=== PATIENT | male | born 1965 | race Caucasian/White ===

== ENCOUNTER 2018-04-17 21:35 | Emergency (ER) | payer OTHER ==
[2018-04-17] MEDS: HYDROmorphONE 0.5 MG/0.5 ML SYG IV (22:07)
[2018-04-17 22:08] LABS: WHITE BLOOD COUNT 15.4 10^3/ul (4.8-10.8)
[2018-04-17 22:08] LABS: ADD MAN DIFF? NO; BASOPHIL # 0.1 10^3/ul (0.0-0.1); BASOPHILS % 0.7 % (0.0-2.0); EOSINOPHILS # 0.7 10^3/ul (0.0-0.5); EOSINOPHILS % 4.4 % (0.0-7.0); HEMATOCRIT 41.9 % (42.0-52.0); HEMOGLOBIN 13.6 g/dl (14.0-18.0); LYMPHOCYTES # 2.3 10^3/ul (0.8-2.9); LYMPHOCYTES % 14.8 % (15.0-51.0); MEAN CORPUSCULAR HEMOGLOBIN 28.8 pg (29.0-33.0); MEAN CORPUSCULAR HGB CONC 32.5 g/dl (32.0-37.0); MEAN CORPUSCULAR VOLUME 88.6 fl (82.0-101.0); MEAN PLATELET VOLUME 8.9 fl (7.4-10.4); MONOCYTE # 0.9 10^3/ul (0.3-0.9); MONOCYTES % 5.7 % (0.0-11.0); NEUTROPHILS % 71.3 % (39.0-77.0); PLATELET COUNT 455 10^3/UL (140-415); RED BLOOD COUNT 4.73 10^6/ul (4.70-6.10); RED CELL DISTRIBUTION WIDTH 13.9 % (11.5-14.5)
[2018-04-17 22:29] LABS: INR 0.85; PROTIME 11.7 Sec (11.9-14.9); PT RATIO 0.9
[2018-04-17 22:30] LABS: PARTIAL THROMBOPLASTIN TIME 32.4 Sec (23.0-35.0)
[2018-04-17 22:43] LABS: ANION GAP 11 (5-13); BLOOD UREA NITROGEN 12 mg/dl (7-20); CALCIUM 9.5 mg/dl (8.4-10.2); CARBON DIOXIDE 26 mmol/L (21-31); CHLORIDE 103 mmol/L (97-110); CREATININE 1.09 mg/dl (0.61-1.24); Estimated GFR > 60 mL/min (>60); GLUCOSE 115 mg/dl (70-220); POTASSIUM 4.1 mmol/L (3.5-5.1); SODIUM 140 mmol/L (135-144)
[2018-04-17 22:52] LABS: TROPONIN-I < 0.012 ng/ml (0.000-0.120)
[2018-04-17] MEDS: HYDROmorphONE 2 MG/ML SYG IV (23:19)
[2018-04-17] MEDS: ONDANSETRON 4 MG INJ IV (23:19)
== END 2018-04-18 02:25 | disposition home or self-care (01) ==
LOC: E/R 04-18 02:25
DX: R07.89 Other chest pain (principal); D64.9 Anemia, unspecified; J44.9 Chronic obstructive pulmonary disease, unspecified
CPT/HCPCS: 36415; 71250; 80048; 84484; 85025; 85610; 85730; 96374; 96375; 96376; 99285-25

== ENCOUNTER 2018-04-19 19:08 | Emergency (ER) | payer OTHER ==
[2018-04-19 20:00] LABS: ADD MAN DIFF? NO; BASOPHIL # 0.1 10^3/ul (0.0-0.1); BASOPHILS % 0.6 % (0.0-2.0); EOSINOPHILS # 0.6 10^3/ul (0.0-0.5); EOSINOPHILS % 3.9 % (0.0-7.0); HEMATOCRIT 40.3 % (42.0-52.0); HEMOGLOBIN 13.2 g/dl (14.0-18.0); LYMPHOCYTES # 2.1 10^3/ul (0.8-2.9); LYMPHOCYTES % 14.6 % (15.0-51.0); MEAN CORPUSCULAR HGB CONC 32.8 g/dl (32.0-37.0); MEAN CORPUSCULAR VOLUME 88.6 fl (82.0-101.0); MEAN PLATELET VOLUME 8.5 fl (7.4-10.4); MONOCYTE # 0.9 10^3/ul (0.3-0.9); MONOCYTES % 6.6 % (0.0-11.0); NEUTROPHIL # 10.3 10^3/ul (1.6-7.5); NEUTROPHILS % 72.5 % (39.0-77.0); PLATELET COUNT 450 10^3/UL (140-415); RED BLOOD COUNT 4.55 10^6/ul (4.70-6.10); RED CELL DISTRIBUTION WIDTH 13.9 % (11.5-14.5)
[2018-04-19 20:00] LABS: WHITE BLOOD COUNT 14.2 10^3/ul (4.8-10.8)
[2018-04-19] MEDS: METHYLPREDNISOLONE 125 MG INJ IV (20:15)
[2018-04-19] MEDS: morphine 4 MG/ML VIAL IV (20:15)
[2018-04-19] MEDS: SOD CHLORIDE 0.9% 500 ML IV (20:16)
[2018-04-19] MEDS: ONDANSETRON 4 MG INJ IV (20:16)
[2018-04-19 20:17] LABS: ALANINE AMINOTRANSFERASE 38 IU/L (13-69); ALBUMIN 3.8 g/dl (3.3-4.9); ALBUMIN/GLOBULIN RATIO 1.05; ALKALINE PHOSPHATASE 82 IU/L (42-121); ANION GAP 13 (5-13); ASPARTATE AMINO TRANSFERASE 26 IU/L (15-46); BILIRUBIN,INDIRECT 0.2 mg/dl (0-1.1); BILIRUBIN,TOTAL 0.2 mg/dl (0.2-1.3); BLOOD UREA NITROGEN 9 mg/dl (7-20); CARBON DIOXIDE 24 mmol/L (21-31); CHLORIDE 106 mmol/L (97-110); CREATININE 0.74 mg/dl (0.61-1.24); Estimated GFR > 60 mL/min (>60); GLUCOSE 124 mg/dl (70-220); LIPASE 89 U/L (23-300); SODIUM 143 mmol/L (135-144); TOTAL PROTEIN 7.4 g/dl (6.1-8.1)
[2018-04-19] MEDS: IPRATROPIUM (NEB) 0.5 MG/2.5 ML AMP INH (20:21)
[2018-04-19] MEDS: ALBUTEROL 0.5% (NEB) 2.5 MG/0.5 ML AMP INH (20:21)
[2018-04-19 20:27] LABS: INR 0.88; PT RATIO 0.9
[2018-04-19 20:28] LABS: PARTIAL THROMBOPLASTIN TIME 28.4 Sec (23.0-35.0)
[2018-04-19 20:29] LABS: TROPONIN-I < 0.012 ng/ml (0.000-0.120)
[2018-04-19] MEDS ORDERED: KETOROLAC 15 MG INJ (21:41)
[2018-04-19] MEDS: KETOROLAC 15 MG INJ IV (21:49)
[2018-04-19] MEDS: OXYCODONE/ACETAMINOPHEN (5/325) TAB PO (22:11)
== END 2018-04-20 01:33 | disposition short-term general hospital (02) ==
LOC: E/R 04-20 01:33
DX: R07.9 Chest pain, unspecified (principal); R06.02 Shortness of breath; G89.18 Other acute postprocedural pain; F11.29 Opioid dependence with unspecified opioid-induced disorder; J44.9 Chronic obstructive pulmonary disease, unspecified; Z76.5 Malingerer [conscious simulation]
CPT/HCPCS: 36415; 71045; 80053; 83690; 84484; 85025; 85610; 85730; 93005; 94644; 96374; 96375; 99291-25

== ENCOUNTER 2018-04-27 13:51 | Emergency (ER) | payer OTHER ==
[2018-04-27] MEDS: HYDROmorphONE 1 MG/ML SYG IV (14:23)
[2018-04-27] MEDS: ONDANSETRON 4 MG INJ IV (14:23)
[2018-04-27 15:10] LABS: ADD MAN DIFF? NO
[2018-04-27 15:22] LABS: BASOPHILS % 0.3 % (0.0-2.0); EOSINOPHILS # 0.9 10^3/ul (0.0-0.5); EOSINOPHILS % 7.9 % (0.0-7.0); HEMATOCRIT 43.4 % (42.0-52.0); HEMOGLOBIN 13.9 g/dl (14.0-18.0); LYMPHOCYTES # 1.6 10^3/ul (0.8-2.9); LYMPHOCYTES % 13.3 % (15.0-51.0); MEAN CORPUSCULAR HEMOGLOBIN 28.8 pg (29.0-33.0); MEAN PLATELET VOLUME 9.2 fl (7.4-10.4); MONOCYTE # 1.2 10^3/ul (0.3-0.9); MONOCYTES % 10.1 % (0.0-11.0); NEUTROPHIL # 7.7 10^3/ul (1.6-7.5); NEUTROPHILS % 65.5 % (39.0-77.0); PLATELET COUNT 306 10^3/UL (140-415); RED BLOOD COUNT 4.82 10^6/ul (4.70-6.10); RED CELL DISTRIBUTION WIDTH 14.3 % (11.5-14.5)
[2018-04-27 15:22] LABS: WHITE BLOOD COUNT 11.7 10^3/ul (4.8-10.8)
[2018-04-27 15:39] LABS: INR 0.77; PARTIAL THROMBOPLASTIN TIME 29.4 Sec (23.0-35.0); PROTIME 10.8 Sec (11.9-14.9); PT RATIO 0.8
[2018-04-27 15:41] LABS: LACTIC ACID 1.1 mmol/L (0.5-2.0)
[2018-04-27 15:44] LABS: ANION GAP 9 (5-13); BLOOD UREA NITROGEN 15 mg/dl (7-20); CALCIUM 9.4 mg/dl (8.4-10.2); CARBON DIOXIDE 29 mmol/L (21-31); CHLORIDE 102 mmol/L (97-110); CREATININE 0.82 mg/dl (0.61-1.24); Estimated GFR > 60 mL/min (>60); GLUCOSE 96 mg/dl (70-220); POTASSIUM 4.4 mmol/L (3.5-5.1); SODIUM 140 mmol/L (135-144)
[2018-04-27 15:55] LABS: TROPONIN-I < 0.012 ng/ml (0.000-0.120)
[2018-04-27] MEDS ORDERED: KETOROLAC 30 MG INJ (16:42)
[2018-04-27] MEDS: KETOROLAC 15 MG INJ IV (16:46)
== END 2018-04-27 16:54 | disposition home or self-care (01) ==
LOC: E/R 13:51
DX: R07.89 Other chest pain (principal); J44.9 Chronic obstructive pulmonary disease, unspecified; Z97.8 Presence of other specified devices
CPT/HCPCS: 36415; 71045; 71250; 80048; 83605; 84484; 85025; 85610; 85730; 93005; 96374; 96375; 99285-25

== ENCOUNTER 2018-06-16 08:57 | Inpatient (IN) | payer OTHER ==
[2018-06-16] MEDS: ONDANSETRON 4 MG INJ IV ×2 (09:48→14:20)
[2018-06-16] MEDS: HYDROmorphONE 1 MG/ML SYG IV ×3 (09:52→22:37)
[2018-06-16 10:02] LABS: ADD MAN DIFF? NO
[2018-06-16 10:04] LABS: BASOPHIL # 0.1 10^3/ul (0.0-0.1); BASOPHILS % 0.5 % (0.0-2.0); EOSINOPHILS # 0.6 10^3/ul (0.0-0.5); EOSINOPHILS % 5.7 % (0.0-7.0); HEMATOCRIT 38.9 % (42.0-52.0); HEMOGLOBIN 12.5 g/dl (14.0-18.0); LYMPHOCYTES # 1.7 10^3/ul (0.8-2.9); LYMPHOCYTES % 15.4 % (15.0-51.0); MEAN CORPUSCULAR HEMOGLOBIN 28.2 pg (29.0-33.0); MEAN CORPUSCULAR HGB CONC 32.1 g/dl (32.0-37.0); MEAN CORPUSCULAR VOLUME 87.8 fl (82.0-101.0); MEAN PLATELET VOLUME 8.7 fl (7.4-10.4); MONOCYTES % 8.8 % (0.0-11.0); NEUTROPHIL # 7.4 10^3/ul (1.6-7.5); NEUTROPHILS % 67.8 % (39.0-77.0); PLATELET COUNT 290 10^3/UL (140-415); RED BLOOD COUNT 4.43 10^6/ul (4.70-6.10); RED CELL DISTRIBUTION WIDTH 14.6 % (11.5-14.5)
[2018-06-16] MEDS: DIAZEPAM 5 MG/ML SYG IV (10:12)
[2018-06-16] MEDS: ERTAPENEM SODIUM 1 GM in SOD CHLORIDE 0.9% 100 ML IVPB ×2 (10:12→16:33)
[2018-06-16 10:20] LABS: ALANINE AMINOTRANSFERASE 35 IU/L (13-69); ALBUMIN 3.7 g/dl (3.3-4.9); ALBUMIN/GLOBULIN RATIO 1.19; ALKALINE PHOSPHATASE 69 IU/L (42-121); ANION GAP 8 (5-13); ASPARTATE AMINO TRANSFERASE 28 IU/L (15-46); BILIRUBIN,INDIRECT 0.1 mg/dl (0-1.1); BILIRUBIN,TOTAL 0.1 mg/dl (0.2-1.3); BLOOD UREA NITROGEN 11 mg/dl (7-20); CALCIUM 9.4 mg/dl (8.4-10.2); CARBON DIOXIDE 29 mmol/L (21-31); CHLORIDE 102 mmol/L (97-110); CREATININE 0.72 mg/dl (0.61-1.24); Estimated GFR > 60 mL/min (>60); GLUCOSE 121 mg/dl (70-220); POTASSIUM 3.9 mmol/L (3.5-5.1); SODIUM 139 mmol/L (135-144); TOTAL PROTEIN 6.8 g/dl (6.1-8.1)
[2018-06-16 10:28] LABS: INR 0.94; PROTIME 12.7 Sec (11.9-14.9)
[2018-06-16 10:29] LABS: PARTIAL THROMBOPLASTIN TIME 36.9 Sec (23.0-35.0)
[2018-06-16] MEDS: LORAZEPAM 2 MG INJ IV (10:55)
[2018-06-16] MEDS: HYDROmorphONE 2 MG/ML SYG IM (14:21)
[2018-06-16] MEDS ORDERED: ONDANSETRON 4 MG INJ IV ×2 (14:30→16:00)
[2018-06-16] MEDS ORDERED: ACETAMINOPHEN 325 MG TAB PO ×2 (14:30→16:00)
[2018-06-16] MEDS ORDERED: NACL 0.9% 3 ML SYG IV (16:00)
[2018-06-16] MEDS: SOD CHLORIDE 0.9% 1,000 ML IV (16:25)
[2018-06-16] MEDS: NICOTINE (21 MG/24 HR) PATCH TRANSDERM (16:38)
[2018-06-16] MEDS: HYDROmorphONE 0.5 MG/0.5 ML SYG IV (16:41)
[2018-06-16] MEDS: FAMOTIDINE 20 MG INJ IV (20:24)
[2018-06-16] MEDS: MIRTAZAPINE 15 MG TAB PO (21:00)
[2018-06-16] MEDS: DOCUSATE SODIUM 100 MG CAP PO (21:00)
[2018-06-16] MEDS: METHOCARBAMOL 750 MG TAB PO (21:00)
[2018-06-16] MEDS: ALBUTEROL HFA 8 GM INHALER INH (21:30)
[2018-06-16] MEDS: CALCIUM/VITAMIN D (500/200) TAB PO (21:30)
[2018-06-16] MEDS: GABAPENTIN 300 MG CAP PO (21:38)
[2018-06-16] MEDS: APIXABAN 5 MG TABLET PO (21:38)
[2018-06-16] MEDS: ALPRAZOLAM 0.25 MG TAB PO (21:38)
[2018-06-16] MEDS: ATORVASTATIN 10 MG TAB PO (21:38)
[2018-06-17] MEDS: ALBUTEROL HFA 8 GM INHALER INH ×6 (00:44→20:24)
[2018-06-17] MEDS: SOD CHLORIDE 0.9% 1,000 ML IV ×4 (01:44→21:44)
[2018-06-17] MEDS: HYDROmorphONE 1 MG/ML SYG IV ×4 (03:35→19:56)
[2018-06-17 05:42] LABS: ADD MAN DIFF? NO
[2018-06-17 05:56] LABS: BASOPHIL # 0.1 10^3/ul (0.0-0.1); BASOPHILS % 0.7 % (0.0-2.0); EOSINOPHILS # 0.5 10^3/ul (0.0-0.5); EOSINOPHILS % 4.8 % (0.0-7.0); HEMATOCRIT 43.1 % (42.0-52.0); HEMOGLOBIN 13.8 g/dl (14.0-18.0); LYMPHOCYTES # 2.3 10^3/ul (0.8-2.9); LYMPHOCYTES % 20.1 % (15.0-51.0); MEAN CORPUSCULAR HEMOGLOBIN 28.3 pg (29.0-33.0); MEAN CORPUSCULAR VOLUME 88.3 fl (82.0-101.0); MEAN PLATELET VOLUME 9.3 fl (7.4-10.4); MONOCYTE # 0.9 10^3/ul (0.3-0.9); MONOCYTES % 7.8 % (0.0-11.0); NEUTROPHIL # 7.3 10^3/ul (1.6-7.5); NEUTROPHILS % 64.7 % (39.0-77.0); PLATELET COUNT 368 10^3/UL (140-415); RED BLOOD COUNT 4.88 10^6/ul (4.70-6.10); RED CELL DISTRIBUTION WIDTH 14.7 % (11.5-14.5)
[2018-06-17 05:56] LABS: WHITE BLOOD COUNT 11.2 10^3/ul (4.8-10.8)
[2018-06-17] MEDS: PANTOPRAZOLE (EC) 40 MG TAB PO (06:00)
[2018-06-17 06:03] LABS: HEMOGLOBIN A1C 5.8 % (0-5.9)
[2018-06-17 06:05] LABS: ALANINE AMINOTRANSFERASE 31 IU/L (13-69); ALBUMIN 4.3 g/dl (3.3-4.9); ALBUMIN/GLOBULIN RATIO 1.16; ALKALINE PHOSPHATASE 73 IU/L (42-121); ANION GAP 13 (5-13); ASPARTATE AMINO TRANSFERASE 30 IU/L (15-46); BILIRUBIN,INDIRECT 0.2 mg/dl (0-1.1); BILIRUBIN,TOTAL 0.2 mg/dl (0.2-1.3); BLOOD UREA NITROGEN 11 mg/dl (7-20); CALCIUM 9.4 mg/dl (8.4-10.2); CARBON DIOXIDE 27 mmol/L (21-31); CHLORIDE 101 mmol/L (97-110); CREATININE 0.76 mg/dl (0.61-1.24); Estimated GFR > 60 mL/min (>60); GLUCOSE 115 mg/dl (70-220); POTASSIUM 4.4 mmol/L (3.5-5.1); SODIUM 141 mmol/L (135-144)
[2018-06-17] MEDS: APIXABAN 5 MG TABLET PO (08:28)
[2018-06-17] MEDS: GABAPENTIN 300 MG CAP PO ×2 (08:28→20:23)
[2018-06-17] MEDS: METHOCARBAMOL 750 MG TAB PO ×3 (08:29→20:22)
[2018-06-17] MEDS: FAMOTIDINE 20 MG INJ IV (08:30)
[2018-06-17] MEDS: ENOXAPARIN 30 MG/0.3 ML SYG SC (08:31)
[2018-06-17] MEDS: NICOTINE (21 MG/24 HR) PATCH TRANSDERM (08:31)
[2018-06-17] MEDS: FLUTICASONE/VILANTEROL 100-25 INH (08:36)
[2018-06-17] MEDS: DOCUSATE SODIUM 100 MG CAP PO ×2 (08:36→20:23)
[2018-06-17] MEDS: CALCIUM/VITAMIN D (500/200) TAB PO ×2 (08:37→20:23)
[2018-06-17] MEDS: ALPRAZOLAM 0.25 MG TAB PO (09:46)
[2018-06-17] MEDS: ERTAPENEM SODIUM 1 GM in SOD CHLORIDE 0.9% 100 ML IVPB ×2 (15:29→15:54)
[2018-06-17] MEDS ORDERED: VANCOMYCIN IV PER PHARMACY XX (16:30)
[2018-06-17] MEDS ORDERED: ALBUTEROL/IPRATROPIUM (NEB) 3 ML AMP HHN (17:30)
[2018-06-17] MEDS: LORAZEPAM 1 MG TAB PO (17:58)
[2018-06-17] MEDS: HYDROCODONE/APAP (7.5/325) TAB PO (17:58)
[2018-06-17] MEDS: VANCOMYCIN HCL 2 GM in SOD CHLORIDE 0.9% 500 ML IVPB (17:59)
[2018-06-17] MEDS ORDERED: IPRATROPIUM (NEB) 0.5 MG/2.5 ML AMP (19:31)
[2018-06-17] MEDS: ALBUTEROL/IPRATROPIUM (NEB) 3 ML AMP HHN (19:35)
[2018-06-17] MEDS: FAMOTIDINE 20 MG TAB PO (20:22)
[2018-06-17] MEDS: ATORVASTATIN 10 MG TAB PO (20:23)
[2018-06-17] MEDS: MIRTAZAPINE 15 MG TAB PO (20:23)
[2018-06-18] MEDS: HYDROmorphONE 1 MG/ML SYG IV ×6 (00:48→22:00)
[2018-06-18] MEDS: ALBUTEROL HFA 8 GM INHALER INH ×7 (01:00→21:00)
[2018-06-18] MEDS: ALBUTEROL/IPRATROPIUM (NEB) 3 ML AMP HHN ×4 (01:30→20:00)
[2018-06-18] MEDS: SOD CHLORIDE 0.9% 1,000 ML IV ×3 (04:03→17:01)
[2018-06-18] MEDS: VANCOMYCIN HCL 1.5 GM in SOD CHLORIDE 0.9% 250 ML IVPB (05:31)
[2018-06-18 05:52] LABS: ADD MAN DIFF? NO
[2018-06-18 05:54] LABS: BASOPHIL # 0.1 10^3/ul (0.0-0.1); BASOPHILS % 0.6 % (0.0-2.0); EOSINOPHILS # 0.5 10^3/ul (0.0-0.5); HEMATOCRIT 41.4 % (42.0-52.0); HEMOGLOBIN 13.3 g/dl (14.0-18.0); LYMPHOCYTES % 17.3 % (15.0-51.0); MEAN CORPUSCULAR HEMOGLOBIN 28.4 pg (29.0-33.0); MEAN CORPUSCULAR HGB CONC 32.1 g/dl (32.0-37.0); MEAN CORPUSCULAR VOLUME 88.3 fl (82.0-101.0); MEAN PLATELET VOLUME 9.3 fl (7.4-10.4); MONOCYTE # 0.9 10^3/ul (0.3-0.9); MONOCYTES % 7.9 % (0.0-11.0); NEUTROPHILS % 69.1 % (39.0-77.0); PLATELET COUNT 354 10^3/UL (140-415); RED BLOOD COUNT 4.69 10^6/ul (4.70-6.10); RED CELL DISTRIBUTION WIDTH 14.6 % (11.5-14.5)
[2018-06-18 05:54] LABS: WHITE BLOOD COUNT 11.6 10^3/ul (4.8-10.8)
[2018-06-18 06:23] LABS: ANION GAP 9 (5-13); BLOOD UREA NITROGEN 10 mg/dl (7-20); CALCIUM 9.5 mg/dl (8.4-10.2); CARBON DIOXIDE 28 mmol/L (21-31); CHLORIDE 103 mmol/L (97-110); CREATININE 0.76 mg/dl (0.61-1.24); Estimated GFR > 60 mL/min (>60); GLUCOSE 100 mg/dl (70-220); SODIUM 140 mmol/L (135-144)
[2018-06-18] MEDS: METHOCARBAMOL 750 MG TAB PO ×3 (08:16→21:02)
[2018-06-18] MEDS: FAMOTIDINE 20 MG TAB PO ×2 (08:16→21:02)
[2018-06-18] MEDS: GABAPENTIN 300 MG CAP PO ×2 (08:16→21:03)
[2018-06-18] MEDS: FLUTICASONE/VILANTEROL 100-25 INH ×2 (08:16→08:46)
[2018-06-18] MEDS: DOCUSATE SODIUM 100 MG CAP PO ×3 (08:16→21:02)
[2018-06-18] MEDS: CALCIUM/VITAMIN D (500/200) TAB PO ×3 (08:16→21:02)
[2018-06-18] MEDS: NICOTINE (21 MG/24 HR) PATCH TRANSDERM (08:17)
[2018-06-18] MEDS: ENOXAPARIN 30 MG/0.3 ML SYG SC (08:22)
[2018-06-18] MEDS ORDERED: NICOTINE (21 MG/24 HR) PATCH TRANSDERM (09:00)
[2018-06-18] MEDS: LORAZEPAM 1 MG TAB PO ×2 (09:09→19:35)
[2018-06-18] MEDS: HYDROCODONE/APAP (7.5/325) TAB PO (14:09)
[2018-06-18] MEDS: ALPRAZOLAM 0.25 MG TAB PO (14:09)
[2018-06-18] MEDS: OXYCODONE/ACETAMINOPHEN (5/325) TAB PO (19:37)
[2018-06-18] MEDS: MIRTAZAPINE 15 MG TAB PO (21:02)
[2018-06-18] MEDS: ATORVASTATIN 10 MG TAB PO (21:02)
[2018-06-18] MEDS: TRIMETHOPRIM/SULFAMETHOX (DS) TAB PO (21:02)
[2018-06-18] MEDS: APIXABAN 5 MG TABLET PO (21:02)
[2018-06-19] MEDS: ALBUTEROL HFA 8 GM INHALER INH ×6 (01:00→21:00)
[2018-06-19] MEDS: ALBUTEROL/IPRATROPIUM (NEB) 3 ML AMP HHN ×4 (01:42→19:29)
[2018-06-19] MEDS: HYDROmorphONE 1 MG/ML SYG IV ×6 (02:08→22:33)
[2018-06-19] MEDS: SOD CHLORIDE 0.9% 1,000 ML IV ×3 (02:09→11:22)
[2018-06-19] MEDS: LORAZEPAM 1 MG TAB PO ×3 (05:19→17:39)
[2018-06-19] MEDS: OXYCODONE/ACETAMINOPHEN (5/325) TAB PO ×4 (05:19→19:49)
[2018-06-19] MEDS: CALCIUM/VITAMIN D (500/200) TAB PO ×3 (09:00→21:00)
[2018-06-19] MEDS: FLUTICASONE/VILANTEROL 100-25 INH (09:00)
[2018-06-19] MEDS: DOCUSATE SODIUM 100 MG CAP PO ×2 (09:38→20:31)
[2018-06-19] MEDS: GABAPENTIN 300 MG CAP PO ×2 (09:38→20:30)
[2018-06-19] MEDS: TRIMETHOPRIM/SULFAMETHOX (DS) TAB PO (09:38)
[2018-06-19] MEDS: FAMOTIDINE 20 MG TAB PO ×2 (09:39→20:31)
[2018-06-19] MEDS: APIXABAN 5 MG TABLET PO ×2 (09:39→20:30)
[2018-06-19] MEDS: METHOCARBAMOL 750 MG TAB PO ×3 (09:39→20:31)
[2018-06-19] MEDS: NICOTINE (21 MG/24 HR) PATCH TRANSDERM (09:40)
[2018-06-19] MEDS: ALPRAZOLAM 0.25 MG TAB PO (09:42)
[2018-06-19] MEDS ORDERED: VANCOMYCIN IV PER PHARMACY XX (14:30)
[2018-06-19] MEDS: CEFTRIAXONE 1 GM/50 ML (PMX) 50 ML IVPB (15:22)
[2018-06-19] MEDS: VANCOMYCIN HCL 1.5 GM in SOD CHLORIDE 0.9% 250 ML IVPB (16:35)
[2018-06-19] MEDS: MIRTAZAPINE 15 MG TAB PO (20:30)
[2018-06-19] MEDS: ATORVASTATIN 10 MG TAB PO (20:31)
[2018-06-20] MEDS: OXYCODONE/ACETAMINOPHEN (5/325) TAB PO ×5 (00:07→23:11)
[2018-06-20] MEDS: ALPRAZOLAM 0.25 MG TAB PO (00:07)
[2018-06-20] MEDS: ALBUTEROL HFA 8 GM INHALER INH ×6 (01:00→20:46)
[2018-06-20] MEDS: ALBUTEROL/IPRATROPIUM (NEB) 3 ML AMP HHN ×4 (01:14→20:00)
[2018-06-20] MEDS: SOD CHLORIDE 0.9% 1,000 ML IV ×3 (01:43→19:44)
[2018-06-20] MEDS: HYDROmorphONE 1 MG/ML SYG IV ×5 (02:23→20:41)
[2018-06-20] MEDS: VANCOMYCIN HCL 1.5 GM in SOD CHLORIDE 0.9% 250 ML IVPB ×2 (03:30→15:48)
[2018-06-20] MEDS: DOCUSATE SODIUM 100 MG CAP PO ×2 (08:42→20:46)
[2018-06-20] MEDS: METHOCARBAMOL 750 MG TAB PO ×3 (08:42→20:46)
[2018-06-20] MEDS: FAMOTIDINE 20 MG TAB PO ×2 (08:42→20:45)
[2018-06-20] MEDS: APIXABAN 5 MG TABLET PO ×2 (08:42→20:45)
[2018-06-20] MEDS: GABAPENTIN 300 MG CAP PO ×2 (08:42→20:46)
[2018-06-20] MEDS: NICOTINE (21 MG/24 HR) PATCH TRANSDERM (08:44)
[2018-06-20] MEDS: LORAZEPAM 1 MG TAB PO ×2 (08:50→23:11)
[2018-06-20] MEDS: FLUTICASONE/VILANTEROL 100-25 INH (09:00)
[2018-06-20] MEDS: CALCIUM/VITAMIN D (500/200) TAB PO (09:00)
[2018-06-20] MEDS: CEFTRIAXONE 1 GM/50 ML (PMX) 50 ML IVPB (14:17)
[2018-06-20] MEDS: METOPROLOL (XL) 25 MG TAB PO (14:17)
[2018-06-20] MEDS: ATORVASTATIN 10 MG TAB PO (20:46)
[2018-06-20] MEDS: MIRTAZAPINE 15 MG TAB PO (20:46)
[2018-06-21] MEDS: ALBUTEROL HFA 8 GM INHALER INH ×4 (01:00→21:16)
[2018-06-21] MEDS: ALBUTEROL/IPRATROPIUM (NEB) 3 ML AMP HHN ×4 (01:33→19:57)
[2018-06-21] MEDS: HYDROmorphONE 1 MG/ML SYG IV ×6 (01:38→22:12)
[2018-06-21 03:33] LABS: ADD MAN DIFF? NO
[2018-06-21 03:36] LABS: BASOPHIL # 0.1 10^3/ul (0.0-0.1); BASOPHILS % 0.7 % (0.0-2.0); EOSINOPHILS # 0.5 10^3/ul (0.0-0.5); EOSINOPHILS % 6.5 % (0.0-7.0); HEMATOCRIT 40.4 % (42.0-52.0); HEMOGLOBIN 12.8 g/dl (14.0-18.0); LYMPHOCYTES # 1.8 10^3/ul (0.8-2.9); LYMPHOCYTES % 21.7 % (15.0-51.0); MEAN CORPUSCULAR HEMOGLOBIN 27.8 pg (29.0-33.0); MEAN CORPUSCULAR HGB CONC 31.7 g/dl (32.0-37.0); MEAN CORPUSCULAR VOLUME 87.6 fl (82.0-101.0); MEAN PLATELET VOLUME 9.1 fl (7.4-10.4); MONOCYTE # 0.8 10^3/ul (0.3-0.9); MONOCYTES % 9.4 % (0.0-11.0); NEUTROPHIL # 4.9 10^3/ul (1.6-7.5); PLATELET COUNT 271 10^3/UL (140-415); RED BLOOD COUNT 4.61 10^6/ul (4.70-6.10); RED CELL DISTRIBUTION WIDTH 14.3 % (11.5-14.5)
[2018-06-21 03:36] LABS: WHITE BLOOD COUNT 8.1 10^3/ul (4.8-10.8)
[2018-06-21 04:03] LABS: ANION GAP 11 (5-13); BLOOD UREA NITROGEN 15 mg/dl (7-20); CALCIUM 9.4 mg/dl (8.4-10.2); CARBON DIOXIDE 25 mmol/L (21-31); CHLORIDE 106 mmol/L (97-110); CREATININE 0.81 mg/dl (0.61-1.24); Estimated GFR > 60 mL/min (>60); GLUCOSE 98 mg/dl (70-220); POTASSIUM 4.2 mmol/L (3.5-5.1); SODIUM 142 mmol/L (135-144)
[2018-06-21 04:32] LABS: VANCOMYCIN,TROUGH 7.4 ug/ml (10.0-20.0)
[2018-06-21] MEDS: VANCOMYCIN HCL 1.5 GM in SOD CHLORIDE 0.9% 250 ML IVPB (04:35)
[2018-06-21] MEDS: OXYCODONE/ACETAMINOPHEN (5/325) TAB PO ×2 (04:35→09:04)
[2018-06-21] MEDS: SOD CHLORIDE 0.9% 1,000 ML IV ×3 (05:44→15:44)
[2018-06-21] MEDS: FLUTICASONE/VILANTEROL 100-25 INH (09:00)
[2018-06-21] MEDS: METHOCARBAMOL 750 MG TAB PO ×3 (09:03→21:15)
[2018-06-21] MEDS: GABAPENTIN 300 MG CAP PO ×2 (09:03→21:15)
[2018-06-21] MEDS: DOCUSATE SODIUM 100 MG CAP PO ×2 (09:03→21:15)
[2018-06-21] MEDS: APIXABAN 5 MG TABLET PO ×2 (09:03→21:15)
[2018-06-21] MEDS: NICOTINE (21 MG/24 HR) PATCH TRANSDERM (09:03)
[2018-06-21] MEDS: METOPROLOL (XL) 25 MG TAB PO (09:04)
[2018-06-21] MEDS: FAMOTIDINE 20 MG TAB PO ×2 (09:04→21:15)
[2018-06-21] MEDS: LORAZEPAM 1 MG TAB PO ×2 (11:35→18:10)
[2018-06-21] MEDS: VANCOMYCIN HCL 1.25 GM in SOD CHLORIDE 0.9% 250 ML IVPB ×2 (13:32→20:46)
[2018-06-21] MEDS: CEFTRIAXONE 1 GM/50 ML (PMX) 50 ML IVPB (17:03)
[2018-06-21] MEDS: MIRTAZAPINE 15 MG TAB PO (21:15)
[2018-06-21] MEDS: ATORVASTATIN 10 MG TAB PO (21:15)
[2018-06-22] MEDS: ALBUTEROL HFA 8 GM INHALER INH ×6 (01:00→21:00)
[2018-06-22] MEDS: SOD CHLORIDE 0.9% 1,000 ML IV ×3 (01:29→19:48)
[2018-06-22] MEDS: ALBUTEROL/IPRATROPIUM (NEB) 3 ML AMP HHN ×4 (02:00→20:00)
[2018-06-22] MEDS: HYDROmorphONE 1 MG/ML SYG IV ×6 (02:18→22:19)
[2018-06-22] MEDS: OXYCODONE/ACETAMINOPHEN (5/325) TAB PO ×4 (04:06→23:43)
[2018-06-22] MEDS: VANCOMYCIN HCL 1.25 GM in SOD CHLORIDE 0.9% 250 ML IVPB ×3 (04:47→21:11)
[2018-06-22 05:26] LABS: ADD MAN DIFF? NO
[2018-06-22 05:29] LABS: WHITE BLOOD COUNT 8.2 10^3/ul (4.8-10.8)
[2018-06-22 05:29] LABS: BASOPHIL # 0.1 10^3/ul (0.0-0.1); BASOPHILS % 0.7 % (0.0-2.0); EOSINOPHILS # 0.5 10^3/ul (0.0-0.5); EOSINOPHILS % 5.7 % (0.0-7.0); HEMATOCRIT 41.6 % (42.0-52.0); HEMOGLOBIN 13.2 g/dl (14.0-18.0); LYMPHOCYTES # 1.7 10^3/ul (0.8-2.9); LYMPHOCYTES % 21.2 % (15.0-51.0); MEAN CORPUSCULAR HEMOGLOBIN 27.8 pg (29.0-33.0); MEAN CORPUSCULAR HGB CONC 31.7 g/dl (32.0-37.0); MEAN CORPUSCULAR VOLUME 87.6 fl (82.0-101.0); MEAN PLATELET VOLUME 9.1 fl (7.4-10.4); MONOCYTE # 0.7 10^3/ul (0.3-0.9); MONOCYTES % 8.9 % (0.0-11.0); NEUTROPHIL # 5.1 10^3/ul (1.6-7.5); NEUTROPHILS % 62.2 % (39.0-77.0); PLATELET COUNT 335 10^3/UL (140-415); RED BLOOD COUNT 4.75 10^6/ul (4.70-6.10); RED CELL DISTRIBUTION WIDTH 14.3 % (11.5-14.5)
[2018-06-22 06:08] LABS: ANION GAP 8 (5-13); BLOOD UREA NITROGEN 12 mg/dl (7-20); CALCIUM 9.2 mg/dl (8.4-10.2); CARBON DIOXIDE 26 mmol/L (21-31); CHLORIDE 106 mmol/L (97-110); CREATININE 0.76 mg/dl (0.61-1.24); Estimated GFR > 60 mL/min (>60); GLUCOSE 117 mg/dl (70-220); POTASSIUM 3.9 mmol/L (3.5-5.1); SODIUM 140 mmol/L (135-144)
[2018-06-22] MEDS: DOCUSATE SODIUM 100 MG CAP PO ×3 (09:00→21:13)
[2018-06-22] MEDS: FLUTICASONE/VILANTEROL 100-25 INH (09:00)
[2018-06-22] MEDS: METHOCARBAMOL 750 MG TAB PO ×3 (10:03→21:12)
[2018-06-22] MEDS: FAMOTIDINE 20 MG TAB PO ×2 (10:03→21:12)
[2018-06-22] MEDS: GABAPENTIN 300 MG CAP PO ×2 (10:04→21:12)
[2018-06-22] MEDS: APIXABAN 5 MG TABLET PO ×2 (10:05→21:12)
[2018-06-22] MEDS: NICOTINE (21 MG/24 HR) PATCH TRANSDERM (10:06)
[2018-06-22] MEDS: METOPROLOL (XL) 25 MG TAB PO (10:11)
[2018-06-22 12:17] LABS: VANCOMYCIN,TROUGH 12.5 ug/ml (10.0-20.0)
[2018-06-22] MEDS: CEFTRIAXONE 1 GM/50 ML (PMX) 50 ML IVPB (15:56)
[2018-06-22] MEDS: LORAZEPAM 1 MG TAB PO ×2 (16:16→22:18)
[2018-06-22] MEDS: MIRTAZAPINE 15 MG TAB PO ×2 (21:00→21:12)
[2018-06-22] MEDS: ATORVASTATIN 10 MG TAB PO (21:12)
[2018-06-23] MEDS: ALBUTEROL HFA 8 GM INHALER INH ×6 (01:00→20:26)
[2018-06-23] MEDS: ALBUTEROL/IPRATROPIUM (NEB) 3 ML AMP HHN ×4 (02:00→19:58)
[2018-06-23] MEDS: HYDROmorphONE 1 MG/ML SYG IV ×5 (02:20→20:47)
[2018-06-23] MEDS: OXYCODONE/ACETAMINOPHEN (5/325) TAB PO ×5 (04:31→22:57)
[2018-06-23] MEDS: VANCOMYCIN HCL 1.25 GM in SOD CHLORIDE 0.9% 250 ML IVPB ×3 (04:31→20:25)
[2018-06-23] MEDS: LORAZEPAM 1 MG TAB PO ×4 (04:31→22:57)
[2018-06-23] MEDS: SOD CHLORIDE 0.9% 1,000 ML IV ×2 (07:44→12:16)
[2018-06-23] MEDS: FLUTICASONE/VILANTEROL 100-25 INH (08:38)
[2018-06-23] MEDS: APIXABAN 5 MG TABLET PO ×2 (08:38→20:25)
[2018-06-23] MEDS: GABAPENTIN 300 MG CAP PO ×2 (08:38→20:26)
[2018-06-23] MEDS: FAMOTIDINE 20 MG TAB PO ×2 (08:38→20:26)
[2018-06-23] MEDS: METHOCARBAMOL 750 MG TAB PO ×3 (08:38→20:25)
[2018-06-23] MEDS: NICOTINE (21 MG/24 HR) PATCH TRANSDERM (08:40)
[2018-06-23] MEDS: METOPROLOL (XL) 25 MG TAB PO (08:42)
[2018-06-23] MEDS: DOCUSATE SODIUM 100 MG CAP PO ×2 (08:42→20:25)
[2018-06-23] MEDS: CEFTRIAXONE 1 GM/50 ML (PMX) 50 ML IVPB (15:26)
[2018-06-23] MEDS: MIRTAZAPINE 15 MG TAB PO (20:25)
[2018-06-23] MEDS: ATORVASTATIN 10 MG TAB PO (20:26)
[2018-06-24] MEDS: HYDROmorphONE 1 MG/ML SYG IV ×5 (00:46→17:03)
[2018-06-24] MEDS: ALBUTEROL HFA 8 GM INHALER INH ×5 (01:00→17:00)
[2018-06-24] MEDS: SOD CHLORIDE 0.9% 1,000 ML IV ×3 (03:44→13:06)
[2018-06-24] MEDS: VANCOMYCIN HCL 1.25 GM in SOD CHLORIDE 0.9% 250 ML IVPB (04:59)
[2018-06-24] MEDS: LORAZEPAM 1 MG TAB PO ×2 (05:03→11:58)
[2018-06-24] MEDS: GABAPENTIN 300 MG CAP PO (08:59)
[2018-06-24] MEDS: FAMOTIDINE 20 MG TAB PO (08:59)
[2018-06-24] MEDS: APIXABAN 5 MG TABLET PO (09:00)
[2018-06-24] MEDS: METOPROLOL (XL) 25 MG TAB PO (09:00)
[2018-06-24] MEDS: METHOCARBAMOL 750 MG TAB PO ×2 (09:00→13:04)
[2018-06-24] MEDS: FLUTICASONE/VILANTEROL 100-25 INH (09:00)
[2018-06-24] MEDS: DOCUSATE SODIUM 100 MG CAP PO (09:00)
[2018-06-24] MEDS: NICOTINE (21 MG/24 HR) PATCH TRANSDERM (09:03)
[2018-06-24] MEDS: OXYCODONE/ACETAMINOPHEN (5/325) TAB PO ×2 (10:34→14:38)
[2018-06-24] MEDS: FUROSEMIDE 20 MG INJ IV (13:04)
== END 2018-06-24 18:50 | disposition home or self-care (01) | DRG 603 ==
LOC: E/R 08:57 → 2NE 14:16
DX: L03.116 Cellulitis of left lower limb (principal); L03.115 Cellulitis of right lower limb; Z86.718 Personal history of other venous thrombosis and embolism; Z79.01 Long term (current) use of anticoagulants; J44.9 Chronic obstructive pulmonary disease, unspecified; F17.200 Nicotine dependence, unspecified, uncomplicated; E66.9 Obesity, unspecified; Z68.35 Body mass index [BMI] 35.0-35.9, adult; G89.29 Other chronic pain; I50.9 Heart failure, unspecified
CPT/HCPCS: 36415; 71045; 80048; 80053; 80202; 83036; 85025; 85610; 85730; 87040; 93005; 93922; 93970; 94640; 94664; 96372; 96374; 96375; 99285-25

== ENCOUNTER 2018-07-09 14:24 | Emergency (ER) | payer OTHER ==
[2018-07-09] MEDS: HYDROmorphONE 2 MG/ML SYG IV (18:12)
== END 2018-07-09 19:14 | disposition home or self-care (01) ==
LOC: E/R 14:24
DX: L03.115 Cellulitis of right lower limb (principal); R60.0 Localized edema; L03.114 Cellulitis of left upper limb; J44.9 Chronic obstructive pulmonary disease, unspecified; F17.210 Nicotine dependence, cigarettes, uncomplicated
CPT/HCPCS: 71045; 93005; 96374; 99284-25

== ENCOUNTER 2018-07-31 01:32 | Inpatient (IN) | payer OTHER ==
[2018-07-31] MEDS ORDERED: PROPOFOL 200 MG INJ (01:58)
[2018-07-31] MEDS ORDERED: ETOMIDATE 20 MG INJ (01:58)
[2018-07-31] MEDS ORDERED: SUCCINYLCHOLINE CHLORIDE 100 MG/5 ML SYG IV (01:58)
[2018-07-31] MEDS: PROPOFOL 100 ML IV ×5 (02:09→22:31)
[2018-07-31] MEDS: SUCCINYLCHOLINE CHLORIDE 100 MG/5 ML SYG IV ×2 (02:39→04:05)
[2018-07-31] MEDS: SOD CHLORIDE 0.9% 1,000 ML IV (02:39)
[2018-07-31] MEDS: ETOMIDATE 20 MG INJ IV (02:39)
[2018-07-31 03:06] LABS: AADO2 Arterial 332.8 mmHg (7.0-24.0); Allen Test ACCEPTAB; Arterial Base Excess -2.8 mmol/L (-3.0-3); Arterial Blood Gas Oxygen Sat 99.4 mmHG (95.0-98.0); Arterial COHb 3.3 % (0.0-3.0); Arterial Fraction of Oxyhgb 95.8 % (93.0-99.0); Arterial HCO3 23.3 mmol/L (22.0-26.0); Arterial MetHb 0.3 % (0.0-1.5); Arterial pCO2 45.3 mmhg (35-45); MODE VENT - AC; Site Right Brachial
[2018-07-31 03:17] LABS: ADD MAN DIFF? NO
[2018-07-31 03:19] LABS: BASOPHIL # 0.1 10^3/ul (0.0-0.1); BASOPHILS % 0.4 % (0.0-2.0); EOSINOPHILS # 0.2 10^3/ul (0.0-0.5); EOSINOPHILS % 1.8 % (0.0-7.0); HEMATOCRIT 41.8 % (42.0-52.0); HEMOGLOBIN 13.4 g/dl (14.0-18.0); LYMPHOCYTES # 1.3 10^3/ul (0.8-2.9); LYMPHOCYTES % 10.5 % (15.0-51.0); MEAN CORPUSCULAR HEMOGLOBIN 27.7 pg (29.0-33.0); MEAN CORPUSCULAR HGB CONC 32.1 g/dl (32.0-37.0); MEAN CORPUSCULAR VOLUME 86.5 fl (82.0-101.0); MONOCYTES % 7.5 % (0.0-11.0); NEUTROPHILS % 79.1 % (39.0-77.0); PLATELET COUNT 303 10^3/UL (140-415); RED BLOOD COUNT 4.83 10^6/ul (4.70-6.10); RED CELL DISTRIBUTION WIDTH 15.1 % (11.5-14.5)
[2018-07-31 03:19] LABS: WHITE BLOOD COUNT 12.6 10^3/ul (4.8-10.8)
[2018-07-31 03:39] LABS: AMMONIA 11 umol/l (9-30)
[2018-07-31 03:40] LABS: ALANINE AMINOTRANSFERASE 30 IU/L (13-69); ALBUMIN 3.9 g/dl (3.3-4.9); ALBUMIN/GLOBULIN RATIO 1.34; ALKALINE PHOSPHATASE 79 IU/L (42-121); ANION GAP 12 (5-13); ASPARTATE AMINO TRANSFERASE 32 IU/L (15-46); BLOOD UREA NITROGEN 11 mg/dl (7-20); CALCIUM 9.2 mg/dl (8.4-10.2); CARBON DIOXIDE 25 mmol/L (21-31); CHLORIDE 104 mmol/L (97-110); CREATININE 0.94 mg/dl (0.61-1.24); Estimated GFR > 60 mL/min (>60); GLUCOSE 115 mg/dl (70-220); POTASSIUM 3.6 mmol/L (3.5-5.1); SODIUM 141 mmol/L (135-144); TOTAL PROTEIN 6.8 g/dl (6.1-8.1)
[2018-07-31 03:42] LABS: ADD UMIC YES; UR ASCORBIC ACID NEGATIVE (NEGATIVE); UR BILIRUBIN (Dip) NEGATIVE (NEGATIVE); UR BLOOD (Dip) NEGATIVE (NEGATIVE); UR CLARITY SLIGHTLY CLOUDY (CLEAR); UR COLOR YELLOW (YELLOW); UR GLUCOSE (Dip) NEGATIVE (NEGATIVE); UR KETONES (Dip) TRACE mg/dL (NEGATIVE); UR LEUKOCYTE ESTERASE (Dip) NEGATIVE Leu/ul (NEGATIVE); UR MUCUS FEW /HPF (NONE SEEN); UR NITRITE (Dip) NEGATIVE (NEGATIVE); UR RBC 0 /HPF (0-5); UR SPECIFIC GRAVITY (Dip) 1.029 (1.003-1.030); UR TOTAL PROTEIN (Dip) 1+ mg/dl (NEGATIVE); UR UROBILINOGEN (Dip) 1+ mg/dL (NEGATIVE); UR WBC 2 /HPF (0-5)
[2018-07-31 03:43] LABS: ACETAMINOPHEN < 10.0 ug/ml (10.0-30.0); ETHANOL < 10.0 mg/dl (0-0); SALICYLATE < 1.0 mg/dl (5.0-30.0)
[2018-07-31 03:50] LABS: TROPONIN-I < 0.012 ng/ml (0.000-0.120)
[2018-07-31 04:10] LABS: FREE THYROXINE INDEX (Calc) 2.68 ug/ml (0.65-3.89); T3 UPTAKE 42.5 % (23.5-40.5); T4 (THYROXINE) 6.3 ug/dl (5.5-11.0)
[2018-07-31 04:11] LABS: AMPHETAMINE/METHAMPHETAMINE POSITIVE (NEGATIVE); BARBITURATES NEGATIVE (NEGATIVE); BENZODIAZEPINES POSITIVE (NEGATIVE); CANNABINOIDS NEGATIVE (NEGATIVE); COCAINE POSITIVE (NEGATIVE); OPIATES NEGATIVE (NEGATIVE)
[2018-07-31] MEDS: VECURONIUM 100 MG in DEXTROSE 5% 100 ML IV (04:11)
[2018-07-31 06:56] LABS: LACTIC ACID 1.1 mmol/L (0.5-2.0)
[2018-07-31] MEDS ORDERED: VECURONIUM 100 MG in DEXTROSE 5% 100 ML IV (15:30)
[2018-07-31] MEDS ORDERED: IPRATROPIUM (NEB) 0.5 MG/2.5 ML AMP NEB (17:00)
[2018-07-31] MEDS ORDERED: NACL 0.9% 3 ML SYG IV (17:00)
[2018-07-31] MEDS ORDERED: ONDANSETRON 4 MG INJ IV (17:00)
[2018-07-31] MEDS ORDERED: ALBUTEROL 0.083% (NEB) 2.5 MG/3 ML AMP NEB (17:00)
[2018-07-31] MEDS: FAMOTIDINE 20 MG INJ IV (17:06)
[2018-07-31] MEDS: THIAMINE 100 MG TAB NGT (17:06)
[2018-07-31] MEDS: CYANOCOBALAMIN 1000 MCG INJ IM (17:07)
[2018-07-31] MEDS: ENOXAPARIN 40 MG/0.4 ML SYG SC (17:08)
[2018-07-31] MEDS: PIPER-TAZO 2.25 GM (PMX) 50 ML IVPB ×2 (17:58→22:29)
[2018-07-31] MEDS: D5W-0.45 NACL + KCL 20 MEQ 1,000 ML IV (19:03)
[2018-08-01] MEDS: PROPOFOL 100 ML IV ×3 (01:04→07:13)
[2018-08-01 05:36] LABS: ADD MAN DIFF? NO; BASOPHILS % 0.4 % (0.0-2.0); EOSINOPHILS # 0.4 10^3/ul (0.0-0.5); EOSINOPHILS % 3.5 % (0.0-7.0); HEMATOCRIT 41.9 % (42.0-52.0); HEMOGLOBIN 13.1 g/dl (14.0-18.0); LYMPHOCYTES # 1.2 10^3/ul (0.8-2.9); LYMPHOCYTES % 11.2 % (15.0-51.0); MEAN CORPUSCULAR HEMOGLOBIN 27.6 pg (29.0-33.0); MEAN CORPUSCULAR HGB CONC 31.3 g/dl (32.0-37.0); MEAN CORPUSCULAR VOLUME 88.4 fl (82.0-101.0); MEAN PLATELET VOLUME 9.7 fl (7.4-10.4); MONOCYTE # 0.9 10^3/ul (0.3-0.9); MONOCYTES % 7.7 % (0.0-11.0); NEUTROPHIL # 8.5 10^3/ul (1.6-7.5); NEUTROPHILS % 76.6 % (39.0-77.0); PLATELET COUNT 255 10^3/UL (140-415); RED BLOOD COUNT 4.74 10^6/ul (4.70-6.10); RED CELL DISTRIBUTION WIDTH 15.3 % (11.5-14.5)
[2018-08-01 05:36] LABS: WHITE BLOOD COUNT 11.1 10^3/ul (4.8-10.8)
[2018-08-01] MEDS: D5W-0.45 NACL + KCL 20 MEQ 1,000 ML IV ×3 (05:50→18:00)
[2018-08-01] MEDS: PANTOPRAZOLE 40 MG INJ IV (05:51)
[2018-08-01] MEDS: PIPER-TAZO 2.25 GM (PMX) 50 ML IVPB (05:51)
[2018-08-01 06:20] LABS: ANION GAP 5 (5-13); BLOOD UREA NITROGEN 5 mg/dl (7-20); CALCIUM 8.8 mg/dl (8.4-10.2); CARBON DIOXIDE 29 mmol/L (21-31); CHLORIDE 104 mmol/L (97-110); CREATININE 0.76 mg/dl (0.61-1.24); Estimated GFR > 60 mL/min (>60); GLUCOSE 106 mg/dl (70-220); MAGNESIUM 2.3 mg/dl (1.7-2.5); POTASSIUM 3.4 mmol/L (3.5-5.1); SODIUM 138 mmol/L (135-144)
[2018-08-01] MEDS: CYANOCOBALAMIN 1000 MCG INJ IM (08:32)
[2018-08-01] MEDS: THIAMINE 100 MG TAB NGT (08:32)
[2018-08-01] MEDS: ACETAMINOPHEN 650MG/20.3ML CUP PO (08:32)
[2018-08-01] MEDS: ENOXAPARIN 40 MG/0.4 ML SYG SC (08:33)
[2018-08-01] MEDS ORDERED: ENOXAPARIN 40 MG/0.4 ML SYG SC (09:00)
[2018-08-01] MEDS: HYDROmorphONE 0.5 MG/0.5 ML SYG IV ×4 (11:12→21:23)
[2018-08-01] MEDS ORDERED: LORAZEPAM 1 MG TAB PO (17:00)
[2018-08-01] MEDS: POTASSIUM CHLORIDE 20 MEQ POWDER FOR ORAL SOLN GTB (18:01)
[2018-08-01] MEDS: FAMOTIDINE 20 MG INJ IV (21:24)
[2018-08-01] MEDS: DOCUSATE SODIUM 100 MG CAP PO (21:24)
[2018-08-01] MEDS: GABAPENTIN 300 MG CAP PO (21:24)
[2018-08-01] MEDS: LORAZEPAM 2 MG INJ IV (22:24)
[2018-08-02] MEDS: HYDROmorphONE 0.5 MG/0.5 ML SYG IV ×2 (01:25→05:20)
[2018-08-02] MEDS: LORAZEPAM 2 MG INJ IV (06:43)
[2018-08-02 06:54] LABS: ADD MAN DIFF? NO
[2018-08-02 07:03] LABS: BASOPHILS % 0.5 % (0.0-2.0); EOSINOPHILS # 0.4 10^3/ul (0.0-0.5); EOSINOPHILS % 5.2 % (0.0-7.0); HEMATOCRIT 41.4 % (42.0-52.0); HEMOGLOBIN 12.8 g/dl (14.0-18.0); LYMPHOCYTES # 1.5 10^3/ul (0.8-2.9); LYMPHOCYTES % 19.1 % (15.0-51.0); MEAN CORPUSCULAR HEMOGLOBIN 27.5 pg (29.0-33.0); MEAN CORPUSCULAR HGB CONC 30.9 g/dl (32.0-37.0); MEAN PLATELET VOLUME 9.8 fl (7.4-10.4); MONOCYTE # 0.9 10^3/ul (0.3-0.9); MONOCYTES % 10.7 % (0.0-11.0); NEUTROPHIL # 5.2 10^3/ul (1.6-7.5); NEUTROPHILS % 63.9 % (39.0-77.0); PLATELET COUNT 240 10^3/UL (140-415); RED BLOOD COUNT 4.65 10^6/ul (4.70-6.10); RED CELL DISTRIBUTION WIDTH 15.4 % (11.5-14.5)
[2018-08-02 07:03] LABS: WHITE BLOOD COUNT 8.1 10^3/ul (4.8-10.8)
[2018-08-02 07:20] LABS: ANION GAP 6 (5-13); BLOOD UREA NITROGEN 5 mg/dl (7-20); CALCIUM 8.9 mg/dl (8.4-10.2); CARBON DIOXIDE 29 mmol/L (21-31); CHLORIDE 108 mmol/L (97-110); CREATININE 0.75 mg/dl (0.61-1.24); Estimated GFR > 60 mL/min (>60); GLUCOSE 106 mg/dl (70-220); MAGNESIUM 2.3 mg/dl (1.7-2.5); POTASSIUM 3.5 mmol/L (3.5-5.1); SODIUM 143 mmol/L (135-144)
[2018-08-02] MEDS ORDERED: FUROSEMIDE 40 MG TAB PO (09:00)
[2018-08-06 16:17] LABS: VITAMIN B1 (THIAMINE) 197 nmol/L (78-185)
== END 2018-08-02 09:30 | disposition left against medical advice (07) | DRG 917 ==
LOC: TEL 08-02 02:11 → E/R 01:32 → ICU 04:27
PROC: 5A1945Z Respiratory Ventilation, 24-96 Consecutive Hours (ICD-10-PCS; principal; 2018-07-31)
PROC: 0BH17EZ Insertion of Endotracheal Airway into Trachea, Via Natural or Artificial Opening (ICD-10-PCS; 2018-07-31)
PROC: 02HV33Z Insertion of Infusion Device into Superior Vena Cava, Percutaneous Approach (ICD-10-PCS; 2018-07-31)
DX: T40.5X1A Poisoning by cocaine, accidental (unintentional), initial encounter (principal); J96.00 Acute respiratory failure, unspecified whether with hypoxia or hypercapnia; G92 Toxic encephalopathy; T43.621A Poisoning by amphetamines, accidental (unintentional), initial encounter; E66.9 Obesity, unspecified; F17.200 Nicotine dependence, unspecified, uncomplicated; G89.4 Chronic pain syndrome; J44.9 Chronic obstructive pulmonary disease, unspecified; Y92.099 Unspecified place in other non-institutional residence as the place of occurrence of the external cause; Z68.35 Body mass index [BMI] 35.0-35.9, adult; Z79.01 Long term (current) use of anticoagulants; Z79.891 Long term (current) use of opiate analgesic; Z86.718 Personal history of other venous thrombosis and embolism
CPT/HCPCS: 31500; 36600; 70450; 70553; 71045; 74018; 80048; 80053; 80307; 81001; 82140; 82607; 82803; 83605; 83735; 84425; 84436; 84479; 84484; 85025; 87081; 87086; 93005; 94002; 94003; 94770; 95819

== ENCOUNTER 2018-08-16 01:05 | Emergency (ER) | payer OTHER ==
[2018-08-16] MEDS: ONDANSETRON 4 MG INJ IV ×2 (02:13→08:26)
[2018-08-16] MEDS: HYDROmorphONE 0.5 MG/0.5 ML SYG IV ×2 (02:13→04:25)
[2018-08-16 02:22] LABS: ADD MAN DIFF? NO
[2018-08-16 02:24] LABS: BASOPHIL # 0.1 10^3/ul (0.0-0.1); BASOPHILS % 0.4 % (0.0-2.0); EOSINOPHILS # 0.2 10^3/ul (0.0-0.5); EOSINOPHILS % 1.8 % (0.0-7.0); HEMATOCRIT 43.7 % (42.0-52.0); LYMPHOCYTES # 2.1 10^3/ul (0.8-2.9); LYMPHOCYTES % 15.3 % (15.0-51.0); MEAN CORPUSCULAR HEMOGLOBIN 27.5 pg (29.0-33.0); MEAN CORPUSCULAR VOLUME 85.9 fl (82.0-101.0); MEAN PLATELET VOLUME 9.4 fl (7.4-10.4); MONOCYTE # 1.1 10^3/ul (0.3-0.9); MONOCYTES % 7.8 % (0.0-11.0); NEUTROPHILS % 73.9 % (39.0-77.0); PLATELET COUNT 372 10^3/UL (140-415); RED BLOOD COUNT 5.09 10^6/ul (4.70-6.10); RED CELL DISTRIBUTION WIDTH 15.6 % (11.5-14.5)
[2018-08-16 02:24] LABS: WHITE BLOOD COUNT 13.5 10^3/ul (4.8-10.8)
[2018-08-16 02:45] LABS: INR 0.87; PROTIME 11.9 Sec (11.9-14.9); PT RATIO 0.9
[2018-08-16 02:46] LABS: PARTIAL THROMBOPLASTIN TIME 29.9 Sec (23.0-35.0)
[2018-08-16 02:59] LABS: ALANINE AMINOTRANSFERASE 19 IU/L (13-69); ALBUMIN 4.2 g/dl (3.3-4.9); ALBUMIN/GLOBULIN RATIO 1.35; ALKALINE PHOSPHATASE 76 IU/L (42-121); ANION GAP 10 (5-13); ASPARTATE AMINO TRANSFERASE 20 IU/L (15-46); BILIRUBIN,INDIRECT 0.2 mg/dl (0-1.1); BILIRUBIN,TOTAL 0.2 mg/dl (0.2-1.3); BLOOD UREA NITROGEN 11 mg/dl (7-20); CALCIUM 9.6 mg/dl (8.4-10.2); CARBON DIOXIDE 28 mmol/L (21-31); CHLORIDE 103 mmol/L (97-110); CREATININE 0.76 mg/dl (0.61-1.24); Estimated GFR > 60 mL/min (>60); GLUCOSE 108 mg/dl (70-220); LIPASE 165 U/L (23-300); POTASSIUM 3.5 mmol/L (3.5-5.1); SODIUM 141 mmol/L (135-144); TOTAL PROTEIN 7.3 g/dl (6.1-8.1)
[2018-08-16 03:09] LABS: TROPONIN-I < 0.012 ng/ml (0.000-0.120)
[2018-08-16 03:20] LABS: ETHANOL < 10.0 mg/dl (0-0)
[2018-08-16 03:49] LABS: URINE BLOOD (Dip) POC Negative (NEGATIVE); URINE GLUCOSE (Dip) POC Negative (NEGATIVE); URINE KETONES (Dip) POC Negative (NEGATIVE); URINE LEUKOCYTE EST (Dip) POC Negative (NEGATIVE); URINE NITRITE (Dip) POC Negative (NEGATIVE); URINE TOTAL PROTEIN POC Trace (NEGATIVE)
[2018-08-16 03:49] LABS: URINE PH (Dip) POC 8.5 (5.0-8.5)
[2018-08-16] MEDS: KETOROLAC 30 MG INJ IV (03:52)
[2018-08-16] MEDS: PIPER-TAZO 3.375 GM IV (PMX) 100 ML IVPB (04:24)
[2018-08-16] MEDS: LORAZEPAM 2 MG INJ IV (04:59)
[2018-08-16] MEDS: HYDROmorphONE 1 MG/ML SYG IV (08:26)
== END 2018-08-16 09:35 | disposition left against medical advice (07) ==
LOC: E/R 01:05
DX: K56.609 Unspecified intestinal obstruction, unspecified as to partial versus complete obstruction (principal); K92.0 Hematemesis
CPT/HCPCS: 36415; 71045; 74176; 80053; 80307; 81003; 83690; 84484; 85025; 85610; 85730; 86850; 86900; 86901; 93005; 96374; 96375; 96376; 99285-25

== ENCOUNTER 2018-08-16 14:34 | Emergency (ER) | payer SELFPAY | END 2018-08-16 19:30 | disposition left against medical advice (07) | LOC: E/R 14:34 | DX: Z53.21 Procedure and treatment not carried out due to patient leaving prior to being seen by health care provider (principal) ==

== ENCOUNTER 2018-08-21 13:59 | Emergency (ER) | payer SELFPAY | END 2018-08-21 20:03 | disposition left against medical advice (07) | LOC: E/R 13:59 | DX: Z53.21 Procedure and treatment not carried out due to patient leaving prior to being seen by health care provider (principal) ==

== ENCOUNTER 2018-09-02 20:14 | Emergency (ER) | payer OTHER ==
[2018-09-02] MEDS: SOD CHLORIDE 0.9% 500 ML IV (22:11)
[2018-09-02] MEDS: ONDANSETRON 4 MG INJ IV ×2 (22:11→23:39)
[2018-09-02] MEDS: HYDROmorphONE 0.5 MG/0.5 ML SYG IV (22:11)
[2018-09-02 22:39] LABS: ADD UMIC NO; UR ASCORBIC ACID NEGATIVE (NEGATIVE); UR BILIRUBIN (Dip) NEGATIVE (NEGATIVE); UR BLOOD (Dip) NEGATIVE (NEGATIVE); UR CLARITY CLEAR (CLEAR); UR COLOR YELLOW (YELLOW); UR GLUCOSE (Dip) NEGATIVE (NEGATIVE); UR KETONES (Dip) NEGATIVE (NEGATIVE); UR LEUKOCYTE ESTERASE (Dip) NEGATIVE Leu/ul (NEGATIVE); UR NITRITE (Dip) NEGATIVE (NEGATIVE); UR SPECIFIC GRAVITY (Dip) 1.006 (1.003-1.030); UR TOTAL PROTEIN (Dip) NEGATIVE (NEGATIVE); UR UROBILINOGEN (Dip) NEGATIVE (NEGATIVE)
[2018-09-02 22:59] LABS: ALANINE AMINOTRANSFERASE 8 IU/L (13-69); ALBUMIN 4.4 g/dl (3.3-4.9); ALKALINE PHOSPHATASE 97 IU/L (42-121); ANION GAP 9 (5-13); ASPARTATE AMINO TRANSFERASE 18 IU/L (15-46); BILIRUBIN,INDIRECT 0.4 mg/dl (0-1.1); BILIRUBIN,TOTAL 0.4 mg/dl (0.2-1.3); BLOOD UREA NITROGEN 12 mg/dl (7-20); CALCIUM 9.8 mg/dl (8.4-10.2); CARBON DIOXIDE 26 mmol/L (21-31); CHLORIDE 105 mmol/L (97-110); CREATININE 0.82 mg/dl (0.61-1.24); Estimated GFR > 60 mL/min (>60); GLUCOSE 104 mg/dl (70-220); LIPASE 117 U/L (23-300); SODIUM 140 mmol/L (135-144); TOTAL PROTEIN 8.4 g/dl (6.1-8.1)
[2018-09-02 23:13] LABS: WHITE BLOOD COUNT 16.7 10^3/ul (4.8-10.8)
[2018-09-02 23:13] LABS: HEMATOCRIT 46.8 % (42.0-52.0); HEMOGLOBIN 14.9 g/dl (14.0-18.0); MEAN CORPUSCULAR HEMOGLOBIN 27.3 pg (29.0-33.0); MEAN CORPUSCULAR HGB CONC 31.8 g/dl (32.0-37.0); MEAN CORPUSCULAR VOLUME 85.9 fl (82.0-101.0); MEAN PLATELET VOLUME 10.1 fl (7.4-10.4); PLATELET COUNT 361 10^3/UL (140-415); POSITIVE DIFF @See below; RED BLOOD COUNT 5.45 10^6/ul (4.70-6.10); RED CELL DISTRIBUTION WIDTH 16.6 % (11.5-14.5)
[2018-09-02 23:15] LABS: ADD MAN DIFF? YES
[2018-09-02] MEDS: HYDROmorphONE 2 MG/ML SYG IV (23:39)
[2018-09-03 00:21] LABS: ANISOCYTOSIS 1+ (0-0); BAND NEUTROPHILS #M 0.5 10^3/ul (0.0-0.6); BAND NEUTROPHILS % (M) 3 % (0-4); GIANT THROMBO% (M) 1 % (0-0); LYMPHOCYTES #M 2.3 10^3/ul (0.8-2.9); LYMPHOCYTES % (M) 14 % (15-51); METAMYELOCYTES #M 0.1 10^3/ul (0.0-0.0); METAMYELOCYTES %M 1 % (0-0); MICROCYTOSIS 1+ (0-0); MONOCYTE #M 0.5 10^3/ul (0.3-0.9); MONOCYTES % (M) 3 % (0-11); MYELOCYTES #M 0.3 10^3/ul (0.0-0.0); MYELOCYTES % (M) 2 % (0-0); PLATELET ESTIMATE NORMAL; POLYCHROMASIA 3+ (0-0); REACTIVE LYMPHOCYTES #M 0.1 10^3/ul (0.0-0.0); REACTIVE LYMPHOCYTES% (M) 1 % (0-0); SEG NEUT #M 12.8 10^3/ul (1.6-7.5); SEGMENTED NEUTROPHILS (M) % 76 % (39-77); SMUDGE%M 4 % (0-0)
[2018-09-03] MEDS ORDERED: BACITRACIN 0.9 GM OINT (00:31)
== END 2018-09-03 00:45 | disposition home or self-care (01) ==
LOC: E/R 09-03 00:45
DX: R10.9 Unspecified abdominal pain (principal); J44.9 Chronic obstructive pulmonary disease, unspecified; I10 Essential (primary) hypertension; F17.210 Nicotine dependence, cigarettes, uncomplicated; E66.9 Obesity, unspecified; Z68.33 Body mass index [BMI] 33.0-33.9, adult
CPT/HCPCS: 36415; 71045; 74176; 80053; 81003; 83690; 85025; 96374; 96375; 96376; 99285-25

== ENCOUNTER 2018-09-04 19:00 | Emergency (ER) | payer OTHER ==
[2018-09-04 20:27] LABS: ADD MAN DIFF? NO
[2018-09-04 20:28] LABS: WHITE BLOOD COUNT 14.2 10^3/ul (4.8-10.8)
[2018-09-04 20:28] LABS: BASOPHILS % 0.3 % (0.0-2.0); EOSINOPHILS # 0.1 10^3/ul (0.0-0.5); EOSINOPHILS % 0.8 % (0.0-7.0); HEMATOCRIT 43.6 % (42.0-52.0); HEMOGLOBIN 13.8 g/dl (14.0-18.0); LYMPHOCYTES # 2.3 10^3/ul (0.8-2.9); LYMPHOCYTES % 16.2 % (15.0-51.0); MEAN CORPUSCULAR HGB CONC 31.7 g/dl (32.0-37.0); MEAN CORPUSCULAR VOLUME 85.2 fl (82.0-101.0); MEAN PLATELET VOLUME 9.1 fl (7.4-10.4); MONOCYTE # 0.8 10^3/ul (0.3-0.9); MONOCYTES % 5.9 % (0.0-11.0); NEUTROPHIL # 10.8 10^3/ul (1.6-7.5); NEUTROPHILS % 76.2 % (39.0-77.0); PLATELET COUNT 326 10^3/UL (140-415); RED BLOOD COUNT 5.12 10^6/ul (4.70-6.10); RED CELL DISTRIBUTION WIDTH 16.5 % (11.5-14.5)
[2018-09-04] MEDS: PANTOPRAZOLE 40 MG INJ IV (20:45)
[2018-09-04] MEDS: SOD CHLORIDE 0.9% 1,000 ML IV (20:46)
[2018-09-04 20:52] LABS: ALANINE AMINOTRANSFERASE 9 IU/L (13-69); ALBUMIN 3.9 g/dl (3.3-4.9); ALBUMIN/GLOBULIN RATIO 1.05; ALKALINE PHOSPHATASE 86 IU/L (42-121); ANION GAP 8 (5-13); ASPARTATE AMINO TRANSFERASE 14 IU/L (15-46); BILIRUBIN,INDIRECT 0.3 mg/dl (0-1.1); BILIRUBIN,TOTAL 0.3 mg/dl (0.2-1.3); BLOOD UREA NITROGEN 9 mg/dl (7-20); CALCIUM 9.8 mg/dl (8.4-10.2); CARBON DIOXIDE 26 mmol/L (21-31); CHLORIDE 105 mmol/L (97-110); CREATININE 0.88 mg/dl (0.61-1.24); Estimated GFR > 60 mL/min (>60); GLUCOSE 102 mg/dl (70-220); LIPASE 95 U/L (23-300); POTASSIUM 3.6 mmol/L (3.5-5.1); SODIUM 139 mmol/L (135-144); TOTAL PROTEIN 7.6 g/dl (6.1-8.1)
[2018-09-04 21:03] LABS: TROPONIN-I < 0.012 ng/ml (0.000-0.120)
[2018-09-04 21:26] LABS: INR 0.94; PROTIME 12.7 Sec (11.9-14.9)
[2018-09-04 21:27] LABS: PARTIAL THROMBOPLASTIN TIME 29.7 Sec (23.0-35.0)
[2018-09-04] MEDS: ONDANSETRON 4 MG INJ IV (22:03)
[2018-09-04] MEDS: HYDROmorphONE 0.5 MG/0.5 ML SYG IV (22:03)
== END 2018-09-05 01:14 | disposition home or self-care (01) ==
LOC: E/R 09-05 01:14
DX: K56.7 Ileus, unspecified (principal); E66.9 Obesity, unspecified; I10 Essential (primary) hypertension; J44.9 Chronic obstructive pulmonary disease, unspecified
CPT/HCPCS: 36415; 71045; 74176; 80053; 83690; 84484; 85025; 85610; 85730; 86850; 86900; 86901; 93005; 96374; 96375; 99285-25

== ENCOUNTER 2018-09-22 22:00 | Emergency (ER) | payer OTHER ==
[2018-09-22] MEDS: SOD CHLORIDE 0.9% 1,000 ML IV (22:06)
[2018-09-22] MEDS: HYDROmorphONE 2 MG/ML SYG IM (22:12)
[2018-09-22] MEDS: ONDANSETRON (ODT) 4 MG TAB ODT (22:12)
[2018-09-22 23:05] LABS: ADD MAN DIFF? NO
[2018-09-22 23:07] LABS: BASOPHILS % 0.3 % (0.0-2.0); EOSINOPHILS # 0.2 10^3/ul (0.0-0.5); EOSINOPHILS % 1.7 % (0.0-7.0); HEMATOCRIT 40.4 % (42.0-52.0); HEMOGLOBIN 12.9 g/dl (14.0-18.0); LYMPHOCYTES # 2.2 10^3/ul (0.8-2.9); LYMPHOCYTES % 17.7 % (15.0-51.0); MEAN CORPUSCULAR HEMOGLOBIN 27.4 pg (29.0-33.0); MEAN CORPUSCULAR HGB CONC 31.9 g/dl (32.0-37.0); MEAN CORPUSCULAR VOLUME 85.8 fl (82.0-101.0); MEAN PLATELET VOLUME 9.4 fl (7.4-10.4); MONOCYTES % 7.7 % (0.0-11.0); NEUTROPHIL # 8.9 10^3/ul (1.6-7.5); NEUTROPHILS % 71.9 % (39.0-77.0); PLATELET COUNT 301 10^3/UL (140-415); RED BLOOD COUNT 4.71 10^6/ul (4.70-6.10); RED CELL DISTRIBUTION WIDTH 17.2 % (11.5-14.5)
[2018-09-22 23:07] LABS: WHITE BLOOD COUNT 12.4 10^3/ul (4.8-10.8)
[2018-09-22 23:26] LABS: ALANINE AMINOTRANSFERASE 16 IU/L (13-69); ALBUMIN 3.8 g/dl (3.3-4.9); ALBUMIN/GLOBULIN RATIO 1.31; ALKALINE PHOSPHATASE 74 IU/L (42-121); ANION GAP 6 (5-13); ASPARTATE AMINO TRANSFERASE 20 IU/L (15-46); BILIRUBIN,INDIRECT 0.2 mg/dl (0-1.1); BILIRUBIN,TOTAL 0.2 mg/dl (0.2-1.3); BLOOD UREA NITROGEN 12 mg/dl (7-20); CALCIUM 9.4 mg/dl (8.4-10.2); CARBON DIOXIDE 28 mmol/L (21-31); CHLORIDE 106 mmol/L (97-110); CREATININE 0.79 mg/dl (0.61-1.24); Estimated GFR > 60 mL/min (>60); GLUCOSE 93 mg/dl (70-220); LIPASE 101 U/L (23-300); POTASSIUM 4.1 mmol/L (3.5-5.1); SODIUM 140 mmol/L (135-144); TOTAL PROTEIN 6.7 g/dl (6.1-8.1)
[2018-09-22] MEDS: HYDROmorphONE 2 MG/ML SYG IV (23:35)
[2018-09-22 23:37] LABS: TROPONIN-I < 0.012 ng/ml (0.000-0.120)
[2018-09-22] MEDS: LORAZEPAM 2 MG INJ IV (23:38)
[2018-09-22] MEDS: LIDOCAINE 2% VISC 15 ML CUP PO (23:38)
[2018-09-23 00:05] LABS: ADD UMIC YES; UR AMORPHOUS CRYSTAL FEW /HPF (NONE SEEN); UR ASCORBIC ACID NEGATIVE (NEGATIVE); UR BACTERIA FEW /HPF (NONE SEEN); UR BILIRUBIN (Dip) NEGATIVE (NEGATIVE); UR BLOOD (Dip) 1+ mg/dL (NEGATIVE); UR CLARITY CLOUDY (CLEAR); UR COLOR YELLOW (YELLOW); UR GLUCOSE (Dip) NEGATIVE (NEGATIVE); UR KETONES (Dip) NEGATIVE (NEGATIVE); UR LEUKOCYTE ESTERASE (Dip) TRACE Leu/ul (NEGATIVE); UR NITRITE (Dip) NEGATIVE (NEGATIVE); UR RBC 1 /HPF (0-5); UR SPECIFIC GRAVITY (Dip) 1.018 (1.003-1.030); UR TOTAL PROTEIN (Dip) NEGATIVE (NEGATIVE); UR UROBILINOGEN (Dip) NEGATIVE (NEGATIVE); UR WBC 4 /HPF (0-5)
[2018-09-23] MEDS: HYDROmorphONE 2 MG/ML SYG IV (00:11)
[2018-09-23 00:59] LABS: AMPHETAMINE/METHAMPHETAMINE Negative (NEGATIVE); BARBITURATES Negative (NEGATIVE); BENZODIAZEPINES Negative (NEGATIVE); CANNABINOIDS Negative (NEGATIVE); COCAINE Negative (NEGATIVE); OPIATES Positive (NEGATIVE)
[2018-09-23] MEDS ORDERED: ONDANSETRON 4 MG INJ IV (02:00)
[2018-09-23] MEDS ORDERED: ACETAMINOPHEN 325 MG TAB PO (02:00)
== END 2018-09-23 02:59 | disposition left against medical advice (07) ==
LOC: E/R 22:00
DX: K56.609 Unspecified intestinal obstruction, unspecified as to partial versus complete obstruction (principal); I10 Essential (primary) hypertension; J44.9 Chronic obstructive pulmonary disease, unspecified; F17.210 Nicotine dependence, cigarettes, uncomplicated
CPT/HCPCS: 36415; 71045; 74176; 80053; 80307; 81001; 83690; 84484; 85025; 93005; 96372; 96374; 96375; 96376; 99285-25

== ENCOUNTER 2018-09-23 09:56 | Emergency (ER) | payer OTHER ==
[2018-09-23 12:25] LABS: ADD MAN DIFF? NO
[2018-09-23 12:27] LABS: WHITE BLOOD COUNT 10.6 10^3/ul (4.8-10.8)
[2018-09-23 12:28] LABS: BASOPHILS % 0.4 % (0.0-2.0); EOSINOPHILS # 0.1 10^3/ul (0.0-0.5); EOSINOPHILS % 0.9 % (0.0-7.0); HEMATOCRIT 39.7 % (42.0-52.0); HEMOGLOBIN 12.8 g/dl (14.0-18.0); LYMPHOCYTES # 1.6 10^3/ul (0.8-2.9); LYMPHOCYTES % 14.7 % (15.0-51.0); MEAN CORPUSCULAR HEMOGLOBIN 27.8 pg (29.0-33.0); MEAN CORPUSCULAR HGB CONC 32.2 g/dl (32.0-37.0); MEAN CORPUSCULAR VOLUME 86.1 fl (82.0-101.0); MEAN PLATELET VOLUME 9.6 fl (7.4-10.4); MONOCYTE # 0.8 10^3/ul (0.3-0.9); MONOCYTES % 7.5 % (0.0-11.0); NEUTROPHIL # 8.1 10^3/ul (1.6-7.5); NEUTROPHILS % 76.1 % (39.0-77.0); PLATELET COUNT 267 10^3/UL (140-415); RED BLOOD COUNT 4.61 10^6/ul (4.70-6.10); RED CELL DISTRIBUTION WIDTH 17.3 % (11.5-14.5)
[2018-09-23] MEDS: ONDANSETRON 4 MG INJ IV ×2 (12:28→13:28)
[2018-09-23] MEDS: HYDROmorphONE 1 MG/ML SYG IV ×2 (12:29→13:29)
[2018-09-23] MEDS: IOHEXOL 14.3 MG(I)/ML (ADULT) BTL PO (12:30)
[2018-09-23] MEDS: BARIUM SULF 2% 450 ML BTL (BERRY SMOOTHIE) PO ×2 (12:36→14:53)
[2018-09-23 12:47] LABS: INR 0.83; PROTIME 11.5 Sec (11.9-14.9); PT RATIO 0.9
[2018-09-23 12:48] LABS: PARTIAL THROMBOPLASTIN TIME 27.4 Sec (23.0-35.0)
[2018-09-23 13:03] LABS: ALANINE AMINOTRANSFERASE 17 IU/L (13-69); ALBUMIN 3.8 g/dl (3.3-4.9); ALBUMIN/GLOBULIN RATIO 1.26; ALKALINE PHOSPHATASE 71 IU/L (42-121); AMYLASE 64 U/L (11-123); ANION GAP 8 (5-13); ASPARTATE AMINO TRANSFERASE 21 IU/L (15-46); BILIRUBIN,INDIRECT 0.3 mg/dl (0-1.1); BILIRUBIN,TOTAL 0.3 mg/dl (0.2-1.3); BLOOD UREA NITROGEN 10 mg/dl (7-20); CALCIUM 9.4 mg/dl (8.4-10.2); CARBON DIOXIDE 26 mmol/L (21-31); CHLORIDE 106 mmol/L (97-110); CREATININE 0.81 mg/dl (0.61-1.24); Estimated GFR > 60 mL/min (>60); GLUCOSE 97 mg/dl (70-220); LIPASE 102 U/L (23-300); POTASSIUM 3.9 mmol/L (3.5-5.1); SODIUM 140 mmol/L (135-144); TOTAL PROTEIN 6.8 g/dl (6.1-8.1)
[2018-09-23] MEDS: LORAZEPAM 2 MG INJ IV (14:49)
[2018-09-23] MEDS: DIPHENHYDRAMINE 50 MG INJ IV (14:49)
== END 2018-09-23 17:14 | disposition short-term general hospital (02) ==
LOC: E/R 09:56
DX: K56.699 Other intestinal obstruction unspecified as to partial versus complete obstruction (principal); I10 Essential (primary) hypertension; J44.9 Chronic obstructive pulmonary disease, unspecified; E66.9 Obesity, unspecified; Z68.28 Body mass index [BMI] 28.0-28.9, adult; Z87.891 Personal history of nicotine dependence
CPT/HCPCS: 80053; 82150; 83690; 85025; 85610; 85730; 96374; 96375; 96376; 99285-25

== ENCOUNTER 2018-09-25 14:58 | Emergency (ER) | payer OTHER ==
[2018-09-25] MEDS ORDERED: BARIUM SULF 2% 450 ML BTL (BERRY SMOOTHIE) PO (17:10)
[2018-09-25] MEDS ORDERED: SOD CHLORIDE 0.9% 1,000 ML IV (17:10)
[2018-09-25] MEDS ORDERED: ONDANSETRON 4 MG INJ IV (17:10)
[2018-09-25] MEDS ORDERED: IOHEXOL 14.3 MG(I)/ML (ADULT) BTL PO (17:30)
[2018-09-25] MEDS ORDERED: DIPHENHYDRAMINE 50 MG INJ IV (17:30)
== END 2018-09-25 19:00 | disposition left against medical advice (07) ==
LOC: E/R 14:58
DX: R10.9 Unspecified abdominal pain (principal); E66.9 Obesity, unspecified; I10 Essential (primary) hypertension; J44.9 Chronic obstructive pulmonary disease, unspecified; Z79.01 Long term (current) use of anticoagulants
CPT/HCPCS: 93005; 99285-25

== ENCOUNTER 2018-10-24 14:21 | Emergency (ER) | payer OTHER ==
[2018-10-24] MEDS: HYDROCODONE/APAP (10/325) TAB PO (16:37)
[2018-10-24] MEDS: ONDANSETRON (ODT) 4 MG TAB ODT (16:37)
== END 2018-10-24 16:40 | disposition home or self-care (01) ==
LOC: E/R 14:21
DX: R10.84 Generalized abdominal pain (principal); J44.9 Chronic obstructive pulmonary disease, unspecified; I10 Essential (primary) hypertension; E66.9 Obesity, unspecified; Z79.01 Long term (current) use of anticoagulants; Z68.32 Body mass index [BMI] 32.0-32.9, adult; Z87.891 Personal history of nicotine dependence
CPT/HCPCS: 99283; Z7502

== ENCOUNTER 2018-12-27 00:01 | Emergency (ER) | payer OTHER ==
[2018-12-27] MEDS: LIDOCAINE/MYLANTA 40 ML BTL PO (02:50)
[2018-12-27] MEDS: FAMOTIDINE 20 MG INJ IV (02:51)
[2018-12-27] MEDS: METOCLOPRAMIDE 10 MG INJ IV (02:51)
[2018-12-27 03:02] LABS: ADD MAN DIFF? NO
[2018-12-27 03:04] LABS: WHITE BLOOD COUNT 12.1 10^3/ul (4.8-10.8)
[2018-12-27 03:04] LABS: BASOPHILS % 0.3 % (0.0-2.0); EOSINOPHILS # 0.3 10^3/ul (0.0-0.5); EOSINOPHILS % 2.1 % (0.0-7.0); HEMATOCRIT 41.8 % (42.0-52.0); HEMOGLOBIN 13.7 g/dl (14.0-18.0); LYMPHOCYTES # 2.2 10^3/ul (0.8-2.9); LYMPHOCYTES % 17.8 % (15.0-51.0); MEAN CORPUSCULAR HEMOGLOBIN 29.5 pg (29.0-33.0); MEAN CORPUSCULAR HGB CONC 32.8 g/dl (32.0-37.0); MEAN CORPUSCULAR VOLUME 90.1 fl (82.0-101.0); MEAN PLATELET VOLUME 9.1 fl (7.4-10.4); MONOCYTE # 0.9 10^3/ul (0.3-0.9); MONOCYTES % 7.6 % (0.0-11.0); NEUTROPHIL # 8.7 10^3/ul (1.6-7.5); NEUTROPHILS % 71.8 % (39.0-77.0); PLATELET COUNT 284 10^3/UL (140-415); RED BLOOD COUNT 4.64 10^6/ul (4.70-6.10); RED CELL DISTRIBUTION WIDTH 15.3 % (11.5-14.5)
[2018-12-27 03:27] LABS: ALANINE AMINOTRANSFERASE 23 IU/L (13-69); ALBUMIN/GLOBULIN RATIO 1.29; ALKALINE PHOSPHATASE 69 IU/L (42-121); ANION GAP 7 (5-13); ASPARTATE AMINO TRANSFERASE 19 IU/L (15-46); BILIRUBIN,INDIRECT 0.9 mg/dl (0-1.1); BILIRUBIN,TOTAL 0.9 mg/dl (0.2-1.3); BLOOD UREA NITROGEN 9 mg/dl (7-20); CALCIUM 9.4 mg/dl (8.4-10.2); CARBON DIOXIDE 29 mmol/L (21-31); CHLORIDE 104 mmol/L (97-110); CREATININE 0.82 mg/dl (0.61-1.24); Estimated GFR > 60 mL/min (>60); GLUCOSE 98 mg/dl (70-220); LIPASE 46 U/L (23-300); POTASSIUM 3.5 mmol/L (3.5-5.1); SODIUM 140 mmol/L (135-144); TOTAL PROTEIN 7.1 g/dl (6.1-8.1)
[2018-12-27] MEDS: HYDROmorphONE 2 MG/ML SYG IV (04:58)
== END 2018-12-27 05:41 | disposition home or self-care (01) ==
LOC: E/R 00:01
DX: R10.12 Left upper quadrant pain (principal); I10 Essential (primary) hypertension; R11.2 Nausea with vomiting, unspecified; Z87.891 Personal history of nicotine dependence; Z79.01 Long term (current) use of anticoagulants
CPT/HCPCS: 36415; 74176; 80053; 83690; 85025; 96374; 96375; 99285-25